=== PATIENT | female | born 1960 | race Caucasian/White ===

== ENCOUNTER 2017-04-14 08:45 | Outpatient (CLI) | payer MEDICARE ==
[2014-10-30 00:38] VITALS: BP 167/112
[2017-04-14 09:39] LABS: eGFR (African) > 60; eGFR (Non-African) > 60
--- NOTE | 2017-04-14 15:14 | Diagnostic Imaging Report ---
BRITNEY CARSON [facility] [id number] [facility] [address] [place], [place]. [address] Report Submission Date: Apr 14, 2017 10:58:37 AM CDT Patient Study Name: ALANA TORO Date: Apr 14, 2017 9:40:34 AM CDT MRN: [id number] Modality Type: CT\SR Gender: F Description: CT ABD & PELVIS W/ CON : 62 Institution: [facility] Physician: BRITNEY CARSON Examination: CT Abdomen/pelvis History: Left abdominal discomfort Comparison exams: None available Technique: CT Abdomen/pelvis with IV protocol. Findings: Liver demonstrates diffuse low attenuation. No central lesion. Spleen , adrenals, pancreas, kidneys and gallbladder are without gross irregularity. No abnormal enhancement. No gallstone. No suspicious renal calcifications. Ureters do not appear to be dilated in their course through the abdomen and pelvis. Bladder margin without gross abnormality. Abdominal aorta demonstrates peripheral atherosclerotic disease. No aneurysm. Cardiac silhouette is not enlarged. No pericardial effusion. Contrast within the bowel. Few prominent loops of small bowel within the left upper abdomen associated with mild mucosal thickening. No proximal dilation. Contrast extends to the large bowel indicating no obstruction. Stool within the large bowel limiting sensitivity. No mesenteric inflammatory changes or free fluid. Appendix is visualized and is without inflammatory changes. Few sigmoid diverticula. No adjacent inflammation. Sigmoid colon nondistended. Small hiatal hernia. Osseous structures demonstrate degenerative changes. Right jose elias sacralization of L5/S1. Lung bases dentures mild parenchymal scarring and mild bronchiectasis. No effusion. Impression: Few prominent loops of small bowel within the left upper abdomen demonstrate a thickened mucosa. Could represent component of gastroenteritis. No obstruction. Sigmoid diverticulosis. No evidence for acute diverticulitis. No evidence for upper abdominal organ acute inflammatory process. No gallstone. No suspicious renal calcifications or normal ureteric dilation. Small hiatal hernia. Osseous degenerative changes with right jose elias sacralization L5/S1. Electronically signed on Apr 14, 2017 10:58:37 AM CDT by: Phoenix COYLE
== END 2017-04-14 09:00 ==
LOC: RAD 08:45
PROVIDERS: ATTEND Internal Medicine Gastroenterology
DX: R10.32 Left lower quadrant pain (principal); K21.9 Gastro-esophageal reflux disease without esophagitis; Z87.19 Personal history of other diseases of the digestive system; Z86.010 Personal history of colon polyps
CPT/HCPCS: 74177; 82565; Q9966

== ENCOUNTER 2018-01-15 21:34 | Emergency (ER) | payer MEDICARE ==
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
[2018-01-15 22:38] LABS: EOSINOPHILS % 2.3 % (0.0-6.8); MEAN CORPUSCULAR HEMOGLOBIN 32.4 pg (28.0-34.0); MEAN CORPUSCULAR VOLUME 95.2 fl (80.0-100.0); MONOCYTES % 5.5 % (0.0-11.0); NEUTROPHILS # 5.6 # k/uL (1.4-7.7)
[2018-01-15 22:49] LABS: eGFR (African) > 60; eGFR (Non-African) > 60
[2018-01-15 22:56] LABS: APPEARANCE,URINE CLEAR (CLEAR); COLOR,URINE YELLOW (YELLOW); OCCULT BLOOD,URINE T (NEGATIVE); UROBILINOGEN URINE 0.2 Eu (0.2-1.0)
[2018-01-15 22:57] LABS: CANNABINOIDS NEGATIVE ng/mL (< 50); METHYLENEDIOXYMETHAMPHETAMINE NEGATIVE ng/mL (<500)
[2018-01-15] MEDS ORDERED: ACETAMINOPHEN 325 MG TABLET ONE (23:14)
[2018-01-16 00:13] VITALS: BP 93/61
--- NOTE | 2018-01-16 15:54 | Diagnostic Imaging Report ---
ROSA SMITH [facility] [address] [facility].[address] [address] Report Submission Date: Jan 15, 2018 11:15:45 PM CDT Patient Study Name: ALANA TORO Date: Jan 15, 2018 10:59:02 PM CDT Modality Type: DX Gender: F Description: UPPER EXTREMITY : 62 Institution: [facility] Physician: ROAS SMITH Two views of the left elbow Clinical history: Pain. Findings: Examination of the left elbow in AP and lateral views demonstrates degenerative changes with spur formation on the coronoid process of the ulna. There is no evident fracture and no lytic or blastic lesion. Impression: 1. Degenerative changes. 2. No fracture. Electronically signed on Jan 15, 2018 11:15:45 PM CDT by: Geoff COYLE
--- NOTE | 2018-01-16 15:55 | Diagnostic Imaging Report ---
ROSA SMITH [facility] [address] [facility].[address] [address] Report Submission Date: Jan 15, 2018 11:13:38 PM CDT Patient Study Name: ALANA TORO Date: Jan 15, 2018 10:52:29 PM CDT Modality Type: DX Gender: F Description: SHOULDER : 62 Institution: [facility] Physician: ROSA SMITH Three views of the left shoulder Clinical history: Pain. Findings: Examination of the left shoulder in multiple views demonstrates degenerative changes with slight narrowing of the acromioclavicular joint and minimal osteophyte formation. The glenohumeral relationship is anatomic. There is no evident fracture. Impression: 1. Degenerative changes in the acromioclavicular joint. Electronically signed on Jan 15, 2018 11:13:38 PM CDT by: Geoff COYLE
== END 2018-01-16 00:05 | disposition home or self-care (01) ==
LOC: ED 21:34
DX: S43.402A Unspecified sprain of left shoulder joint, initial encounter (principal); S53.402A Unspecified sprain of left elbow, initial encounter; X58.XXXA Exposure to other specified factors, initial encounter; Y92.9 Unspecified place or not applicable; Y93.9 Activity, unspecified; Y99.9 Unspecified external cause status; Y09 Assault by unspecified means; F10.120 Alcohol abuse with intoxication, uncomplicated
CPT/HCPCS: 73030; 73070; 80053; 81002; 85025; G0480; G0481; 80320; 80377; 99284; S1016

== ENCOUNTER 2018-09-19 18:31 | Emergency (ER) | payer MEDICARE ==
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
[2018-09-19 19:46] VITALS: BP 137/99
--- NOTE | 2018-09-20 05:47 | Diagnostic Imaging Report ---
MAY CHEN [facility] [address] [facility] [address] [address] Report Submission Date: Sep 19, 2018 7:36:17 PM CDT Patient Study Name: ALANA TORO Date: Sep 19, 2018 7:02:50 PM CDT Modality Type: DX Gender: F Description: FOOT 3 VIEWS OR MORE : 62 Institution: [facility] Physician: MAY CHEN 3 views right foot Clinical history: Right foot pain Findings: No acute fracture dislocation is identified. The alignment is normal. Joint spaces are maintained. Small plantar calcaneal spur is noted. Impression: Negative Electronically signed on Sep 19, 2018 7:36:17 PM CDT by: Carlito COYLE
== END 2018-09-19 19:44 | disposition home or self-care (01) ==
LOC: ED 18:31
DX: S93.601A Unspecified sprain of right foot, initial encounter (principal); W50.0XXA Accidental hit or strike by another person, initial encounter; Y93.9 Activity, unspecified; Y92.009 Unspecified place in unspecified non-institutional (private) residence as the place of occurrence of the external cause
CPT/HCPCS: 73630; 99282; 99283